=== PATIENT | male | born 1990 ===

== ENCOUNTER 2017-06-04 02:57 | Emergency (ER) | payer SELFPAY ==
--- NOTE | 2017-06-04 06:52 | XRay Report ---
FINAL REPORT EXAM: XR SPINE LUMBOSACRAL 2-3V HISTORY: backpain TECHNIQUE: Three views of the lumbar spine were submitted. FINDINGS: The disc heights and alignment appear normal. The canal size is normal. The facet joints appear well maintained. The SI joints appear normal. The soft tissues appear normal. IMPRESSION: Within normal limits.
[2017-06-04 09:47] LABS: Bilirubin,Urine NEG (Negative); Blood,Urine MOD (Negative); Color,Urine Yellow (Yellow); Mucus,Urine FEW /HPF; Nitrite,Urine NEG (Negative); Urobilinogen,Urine < 2.0 mg/dL (<2.0)
[2017-06-04 09:51] LABS: Protein,Urine >500 mg/dL (Negative)
--- NOTE | 2017-06-04 10:27 | Emergency Department Report ---
HPI - General Chief Complaint: Back Pain/Injury Time Seen by Provider: 06/04/17 10:25 - HPI HPI: Patient is a 27-year-old male with no prior conditions who presents to ED complaining of lower back pain stress going on for the past week. Patient states and describes pain as sharp in nature that tingling in physical pinching type pain. She also states that he has had no injuries or trauma to the back. This is a 65 the medication has no medical conditions or allergies to medications. He denies fevers/chills/ chest pains or shortness of breath. ED Past Medical Hx - Past Medical History Hx Hypertension: Yes Hx Diabetes: Yes Additional medical history: High Cholesterol - Surgical History Past Surgical History?: No - Social History Smoking Status: Never Smoker Substance Use Type: None - Medications Home Medications: Home Medications Medication Instructions Recorded Confirmed Last Taken Type Cyclobenzaprine [Flexeril 10 MG 10 mg PO QHS #20 tablet 06/04/17 Unknown Rx TAB] Ibuprofen [Motrin 800 MG tab] 800 mg PO TID #30 tablet 06/04/17 Unknown Rx Lisinopril [Zestril TAB] 20 mg PO QDAY #40 tablet 06/04/17 Unknown Rx ED Review of Systems ROS: Stated complaint: BACK PAIN Other details as noted in HPI Constitutional: denies: chills, fever Eyes: denies: eye pain, eye discharge, vision change ENT: denies: ear pain, throat pain Respiratory: denies: cough, shortness of breath, wheezing Cardiovascular: denies: chest pain, palpitations Endocrine: no symptoms reported Gastrointestinal: denies: abdominal pain, nausea, diarrhea Genitourinary: denies: urgency, dysuria Musculoskeletal: myalgia. denies: back pain, joint swelling, arthralgia Skin: denies: rash, lesions Neurological: denies: headache, weakness, paresthesias Psychiatric: denies: anxiety, depression Hematological/Lymphatic: denies: easy bleeding, easy bruising Physical Exam - Physical Exam Vital Signs: Vital Signs 06/04/17 04:29 Temperature 99.9 F H Pulse Rate 80 Respiratory 18 Rate Blood Pressure 160/104 O2 Sat by Pulse 98 Oximetry Physical Exam: GENERAL: Alert and oriented x3, no apparent distress, Normal Gait, atraumatic. HEAD: Head is normocephalic and a-traumatic. EYES: Extra ocular muscles are intact. Pupils are equal, round, and reactive to light and accommodation. NECK: Supple. Non edematous. No lymphadenopathy or thyromegaly. No C-spine tenderness LUNGS: Symetrical with respiration, No wheezing, no rales or crackles, CTAB. HEART: S1, S2 present, regular rate and rhythm without murmur, no rubs, no gallops. Non tender to palpation ABDOMEN: No organomegaly was noted,Positive bowel sounds, soft, and non- distended. . Nontender to palpation on all Quadrants, NO CVA tenderness. BACK: Full range of motion, no spinal tenderness, tenderness to palpation of the latissimus dorsi muscles on the back. EXTREMITIES/MUSCULOSKELETAL: No cyanosis, clubbing, rash, lesions or edema. Full ROM bilaterally. UE/LE Pulses 2+ bilaterally. LE and UE 5+ strength bilaterally, NEUROLOGIC: The patient is cooperative with no focal neurologic deficits. Cranial nerves II through XII are grossly intact. Normal speech. Normal sensation in bilateral upper and lower extremities, SKIN: Warm and dry, No lesions, No ulceration or induration present. ED Course Vital Signs 06/04/17 04:29 Temperature 99.9 F H Pulse Rate 80 Respiratory 18 Rate Blood Pressure 160/104 O2 Sat by Pulse 98 Oximetry ED Medical Decision Making - Radiology Data Radiology results: report reviewed, image reviewed FINAL REPORT EXAM: XR SPINE LUMBOSACRAL 2-3V HISTORY: backpain TECHNIQUE: Three views of the lumbar spine were submitted. FINDINGS: The disc heights and alignment appear normal. The canal size is normal. The facet joints appear well maintained. The SI joints appear normal. The soft tissues appear normal. IMPRESSION: Within normal limits. Transcribed By: RB Dictated By: EBONIE ANDERSON MD Electronically Authenticated By: EBONIE ANDERSON MD Signed Date/Time: 06/04/17 0250 - Medical Decision Making 27-year-old male presents to ED with myalgia of the back ED course: Patient received Motrin and Flexeril in ED. Thorax a lumbar spinal x-rays obtained. Reported above. Urinalysis is negative. I discussed x-ray and urine results with the patient. Patient has blood pressure was elevated in the ED. Patient stated that he used to be on lisinopril. Lisinopril given in ED. I discussed the patient is to follow-up with his primary care physician to continue blood pressure management. Patient was a symptomatic in the ED blood pressure reduced prior to discharge Vital signs are normal patient is in no acute distress Discussed with patient follow-up with primary care physician. Discussed the patient and take medications as prescribed. I discussed with the patient at anytime is symptoms worsen or new symptoms arise this is a shortness of breath or chest pain to return to the ED immediately Patient has no neurological deficit. Patient is alert and oriented 3 and understands all instructions given. Discussed drowsiness effect of Flexeril makes her drowsy and not to operate machinery while taking flexeril Critical care attestation.: If time is entered above; I have spent that time in minutes in the direct care of this critically ill patient, excluding procedure time. ED Disposition Clinical Impression: Myalgia Low back pain Qualifiers: Chronicity: chronic Back pain laterality: bilateral Sciatica presence: without sciatica Qualified Code(s): M54.5 - Low back pain Disposition: - TO HOME OR SELFCARE Is pt being admited?: No Does the pt Need Aspirin: No Condition: Stable Instructions: Trigger Point Pain (ED), Musculoskeletal Pain (ED) Additional Instructions: Make sure to follow up with the primary care physician as discussed. Take all your medications as you've been prescribed. If you have any worsening symptoms or develop new symptoms please return to ED immediately. Prescriptions: Cyclobenzaprine [Flexeril 10 MG TAB] 10 mg PO QHS #20 tablet Ibuprofen [Motrin 800 MG tab] 800 mg PO TID #30 tablet Lisinopril [Zestril TAB] 20 mg PO QDAY #40 tablet Referrals: PRIMARY CARE, [Primary Care Provider] - 3-[address] [facility] [Outside] - 3-5 Days [facility] [Outside] - 3-5 Days [facility] [Outside] - 3-5 Days [facility] [Outside] - 3-5 Days [facility] [Outside] - 3-5 Days Forms: Accompanied Note, Work/School Release Form(ED) Time of Disposition: 11:09
[2017-06-04] MEDS ORDERED: MOTRIN PO ONE (10:44)
[2017-06-04] MEDS ORDERED: FLEXERIL PO ONE (10:44)
[2017-06-04] MEDS ORDERED: ZESTRIL PO ONE (11:21)
[2017-06-04 12:30] VITALS: BP 144/90
== END 2017-06-04 12:37 | disposition home or self-care (01) ==
LOC: EDSEX → ED 02:57
DX: M54.5 Low back pain (principal); M79.1 Myalgia; I10 Essential (primary) hypertension; E11.9 Type 2 diabetes mellitus without complications; E78.00 Pure hypercholesterolemia, unspecified
CPT/HCPCS: 72100; 81001; 99284